=== PATIENT | male | born 1985 | race Caucasian/White ===

== ENCOUNTER → 2016-09-25 | Outpatient (CLI) | payer OTHER ==
[2016-09-25 16:52] LABS: HEMOGLOBIN 13.7 gm/dl (14.0-17.5); RED BLOOD COUNT 4.69 M/UL (4.20-5.50); WHITE BLOOD COUNT 7.8 K/UL (4.5-11.0)
[2016-09-25 17:07] LABS: BUN/CREATININE RATIO 19 (0-10)
== END ==
LOC: LAB 16:10
PROVIDERS: Internal Medicine Gastroenterology
DX: K52.9 Noninfective gastroenteritis and colitis, unspecified (principal)
CPT/HCPCS: 36415; 80053; 82728; 83540; 83550; 85027; 86140

== ENCOUNTER 2022-04-03 07:53 | Emergency (ER) | payer OTHER ==
[~2022-04-03 07:53] MED LIST: CLINDAMYCIN HC150 MG PO; IBUPROFEN800 MG PO; NORCO 5-325 TA1 EACH PO
[2022-04-03] MEDS ORDERED: NAPROXEN500 MG PO (10:11)
[2022-04-03] MEDS ORDERED: BACTROBAN OINT22 GM EXT (10:11)
[2022-04-03] MEDS ORDERED: CLINDAMYCIN HC300 MG PO (10:11)
== END 2022-04-03 10:35 | disposition home or self-care (01) ==
LOC: ER1 07:53
DX: L02.31 Cutaneous abscess of buttock (principal); F17.210 Nicotine dependence, cigarettes, uncomplicated
CPT/HCPCS: 10060; 87070; 87077; 87186; 87205; 96372; 99283; J1885